=== PATIENT | female | born 1950 | race Caucasian/White ===

== ENCOUNTER 2023-12-23 11:22 | Observation (INO) | payer MEDICARE, SELFPAY ==
[2023-12-23 11:26] VITALS: BP 125/60; PULSE 60; RESP 14; TEMP 37; O2SAT 100; BMI 24.0
[2023-12-23 11:37] VITALS: BMI 24.0
--- NOTE | 2023-12-23 11:59 | EKG_ITS ---
[place] [id number] [address] [place] [id number] Test Date: 2023-12-23 Pat Name: [facility] Department: [facility] Room: Gender: Female Visual C Developer: DAMI : 1950 Requested By: Order Number: [id number] Reading MD: Jitendra Everett MD Measurements Intervals [place] Rate: 52 P: 56 FL: 180 QRS: -20 QRSD: 80 T: 54 QT: 472 QTc: 438 Interpretive Statements Sinus bradycardia Electronically Signed On 12-24-2023 7:37:28 PDT by Jitendra Everett MD
[2023-12-23 12:04] LABS: Add Manual Diff / Slide Review NO; Basophils Absolute Auto 100 /uL (0-100); Basophils Percent Auto 0.8 % (0-2); Eosinophils Absolute Auto 800 /uL (0-450); Eosinophils Percent Auto 8.6 % (2-4); Hematocrit 37.4 % (36-46); Hemoglobin 12.9 g/dL (12.0-16.0); Lymphocytes Absolute Auto 900 /uL (1100-4500); Lymphocytes Percent Auto 9.3 % (25-40); Mean Corpuscular HGB Conc 34.5 % (30-36); Mean Corpuscular Hemoglobin 30.8 PG (26-34); Mean Corpuscular Volume 89.3 fL (80-100); Monocytes Absolute Auto 600 /uL (0-900); Monocytes Percent Auto 6.9 % (3-14); Neutrophils Absolute Auto 7000 /uL (1500-7000); Neutrophils Percent Auto 74.4 % (50-75); Platelet Count 253 X10^3/uL (150-400); Red Blood Cell Count 4.18 X10^6/uL (4.0-5.2); Red Cell Distribution Width 13.3 % (11.6-14.8); White Blood Cell Count 9.4 X10^3/uL (4.5-11.0)
[2023-12-23 12:12] LABS: Alanine Aminotransferase 27 IU/L (<35); Albumin 4.2 g/dL (3.5-5.0); Albumin Globulin Ratio 1.4 (1.0-2.8); Alkaline Phosphatase 54 U/L (38-126); Aspartate Aminotransferase 28 IU/L (14-36); BUN Creatinine Ratio 13.1 (6-22); Bilirubin Total 0.5 mg/dL (0.2-1.3); Blood Urea Nitrogen 11 mg/dL (7-17); Calcium 9.5 mg/dL (8.4-10.2); Carbon Dioxide 25 mmol/L (22-32); Chloride 100 mmol/L (98-107); Estimated Glomerular Filt Rate > 60 mL/min (>60); Globulin 2.9 g/dL (1.7-4.1); Glucose 98 mg/dL (80-110); HEMOLYSIS < 15 (0-50); Lipase 58 U/L (23-300); Potassium 4.3 mmol/L (3.4-5.1); Sodium 132 mmol/L (137-145); Total Protein 7.1 g/dL (6.3-8.2)
--- NOTE | 2023-12-23 12:31 | ED_ITS ---
HPI - Abdominal Pain General Chief Complaint: Abdominal Pain Stated Complaint: abd pain, vomiting Time Seen by Provider: 12/23/23 12:23 Source: patient Mode of arrival: Ambulatory History of Present Illness HPI narrative: Patient here with . Visiting from [place]. Patient started having abdominal pain yesterday. Has history of cecal volvulus with surgery back in 2022 in [place]. Patient had nausea and vomiting through the course of the night. She did try taking szms-orq-ypxrsuw antacids without relief. She was supposed to be on Nexium which she discontinued back in July of this year. Denies any chest pain or back pain. No urinary complaints. No black or bloody stools. Feels bloated. Pain is better. Review of Systems Review of Systems Narrative: GENERAL: negative chills, fatigue, malaise, fever, sweats. HEENT: negative sinus pain, ear pain, sore throat RESPIRATORY: negative dyspnea, cough CARDIOVASCULAR: negative chest pain, palpitations GASTROINTESTINAL: Positive nausea, vomiting, abdominal pain : negative dysuria, frequency, hematuria MUSCULOSKELETAL: negative muscle or bony pain SKIN: negative rash, skin lesions NEUROLOGIC: negative weakness, numbness ROS Unobtainable: All systems reviewed & are unremarkable except as noted in HPI and below Patient History Social History Smoking Status: Never smoker Smoking Status: Never smoker alcohol intake frequency: other Substance Use Type: does not use Exam Narrative Exam Narrative: GENERAL: in no distress, not toxic not dyspneic HEAD: Normocephalic. EYES: Pupils equal round ENT: Mucous membranes moist. NECK: Trachea midline. CARDIOVASCULAR: Regular rate and rhythm RESPIRATORY: Clear to auscultation. Breath sounds equal bilaterally. No wheezes, rales, or rhonchi. GASTROINTESTINAL: Abdomen soft, non-tender, no distention, bowel sounds are present. No pain out of portion exam. No peritoneal signs. No guarding or rebound. No CVA tenderness EXTREMITIES: No gross deformities. BACK: No flank tenderness. NEURO: AOx4. Clear speech SKIN: Warm and dry PSYCH: Not anxious, is cooperative Initial Vital Signs Initial Vital Signs: Vital Signs Temperature 98.6 F 12/23/23 11:26 Pulse Rate 60 12/23/23 11:26 Respiratory Rate 14 12/23/23 11:26 Blood Pressure 125/60 12/23/23 11:26 Pulse Oximetry 100 12/23/23 11:26 Oxygen Delivery Method Room Air 12/23/23 11:26 Course Orders Ordered: ED Orders 12/23/23 11:40 EKG-12 Lead Stat 12/23/23 11:48 Complete Blood Count AUTO DIFF Stat Comprehensive Metabolic Panel Stat Lipase Stat Troponin & CK Cardiac Panel Stat 12/23/23 12:31 CT abdomen pelvis w con Stat Sodium Chloride (Normal Saline 0.9%) 1,000 mls @ 125 mls/hr IV CONT JAIME Last Admin: 12/23/23 15:07 Dose: 125 mls/hr Documented By: CARLOS Morphine Sulfate (Morphine 2 Mg/Ml Inj) 2 mg IV Q4HR PRN PRN Reason: Pain, Severe (7-10) Ondansetron HCl (Ondansetron 4 Mg/2 Ml Inj) 4 mg IV NOW PRN PRN Reason: Nausea And Vomiting Ondansetron HCl (Ondansetron 4 Mg Odt) 4 mg PO NOW PRN PRN Reason: Nausea And Vomiting Ondansetron HCl (Ondansetron 4 Mg/2 Ml Inj) 4 mg IV Q4HR PRN PRN Reason: Nausea And Vomiting Discontinued Medications Al Hydrox/Mg Hydrox/Simethicone 20 ml/ Lidocaine HCl 15 ml 0 ml PO NOW ONE Stop: 12/23/23 12:30 Last Admin: 12/23/23 12:53 Dose: 30 ml Documented By: RORY Sodium Chloride (Normal Saline 0.9%) 1,000 mls @ 1,000 mls/hr IV BOLUS ONE Stop: 12/23/23 13:28 Last Infusion: 12/23/23 13:55 Dose: Infused Documented By: Admin: 12/23/23 12:52 Dose: 1,000 mls/hr Documented By: RORY Pantoprazole Sodium (Pantoprazole 40 Mg Vial) 40 mg IV NOW ONE Stop: 12/23/23 12:30 Last Admin: 12/23/23 12:53 Dose: 40 mg Documented By: RORY Vital Signs Vital signs: Vital Signs - 8 hr 12/23/23 11:26 12/23/23 13:56 Temperature 98.6 F Pulse Rate 60 62 Respiratory Rate 14 20 Blood Pressure 125/60 136/63 Pulse Oximetry 100 98 Oxygen Delivery Method Room Air Room Air MDM - Abdominal Pain Lab Data 12/23/23 11:48 12/23/23 11:48 Labs: Lab Results 12/23/23 Range/Units 11:48 WBC 9.4 (4.5-11.0) X10^3/uL RBC 4.18 (4.0-5.2) X10^6/uL Hgb 12.9 (12.0-16.0) g/dL Hct 37.4 (36-46) % MCV 89.3 (80-100) fL MCH 30.8 (26-34) PG MCHC 34.5 (30-36) % RDW 13.3 (11.6-14.8) % Plt Count 253 (150-400) X10^3/uL Neut % (Auto) 74.4 (50-75) % Lymph % (Auto) 9.3 L (25-40) % [place] % (Auto) 6.9 (3-14) % Eos % (Auto) 8.6 H (2-4) % Baso % (Auto) 0.8 (0-2) % Neut # (Auto) 7000 (9210-1741) /uL Lymph # (Auto) 900 L (4632-5872) /uL [place] # (Auto) 600 (0-900) /uL Eos # (Auto) 800 H (0-450) /uL Baso # (Auto) 100 (0-100) /uL Sodium 132 L (137-145) mmol/L Potassium 4.3 (3.4-5.1) mmol/L Chloride 100 (98-107) mmol/L Carbon Dioxide 25 (22-32) mmol/L BUN 11 (7-17) mg/dL Creatinine 0.84 (0.52-1.04) mg/dL Estimated GFR > 60 (>60) mL/min BUN/Creatinine Ratio 13.1 (6-22) Glucose 98 (80-110) mg/dL Calcium 9.5 (8.4-10.2) mg/dL Total Bilirubin 0.5 (0.2-1.3) mg/dL AST 28 (14-36) IU/L ALT 27 (<35) IU/L Alkaline Phosphatase 54 (38-126) U/L Total Creatine Kinase 207 H (30-135) U/L Troponin I < 0.012 (0.01-0.034) ng/mL Total Protein 7.1 (6.3-8.2) g/dL Albumin 4.2 (3.5-5.0) g/dL Globulin 2.9 (1.7-4.1) g/dL Albumin/Globulin Ratio 1.4 (1.0-2.8) Lipase 58 (23-300) U/L Point of care testing: Urine Dip Bedside Urine Glucose Negative Bedside Urine Bilirubin - Negative Bedside Urine Ketone - Negative Urine Specific [place] 1.010 Bedside Urine Occult Blood - Negative Bedside Urine pH 8.5 Bedside Urine Protein - Negative Bedside Urine Urobilinogen - Negative Bedside Urine Nitrite - Negative Bedside Urine Leukocytes - Negative Esterase Imaging Data CT scan - abdomen/pelvis: Radiologist's Impression: [address] [address] [address] Scan Report Signed Patient: Richa Sloan MR#: [id number] : 1950 Acct:[id number] Age/Sex: 73 / F Date of Service: 12/23/23 Loc: ED Accession Number: [id number] Procedure: CT abdomen pelvis w con Ordering Provider: Pio Recio MD PROCEDURE: CT ABDOMEN PELVIS W CON INDICATIONS: epigastric pain TECHNIQUE: After the administration of intravenous contrast, axial sections acquired from the lung bases to the pubic symphysis. Coronal and sagittal reformats were performed. For radiation dose reduction, the following was used: automated exposure control, adjustment of mA and/or kV according to patient size. COMPARISON: None. FINDINGS: Image quality: Diagnostic. Lower Chest: In the extreme right lung base there are peripheral areas of cystic bronchiectasis with associated fluid. No airspace consolidation. ABDOMEN: Liver: No solid mass. Gallbladder: No radiopaque gallstones or wall thickening. Biliary ducts: No biliary dilation. Pancreas: No ductal dilation. Spleen: Size is within normal limits. Adrenal Glands: No adrenal nodules. Kidneys and Ureters: No hydronephrosis. No solid mass. No complex renal cystic lesion which requires follow up. Stomach and Bowel: Previous partial bowel resection. There is a diffusely thickened and narrowed distal jejunal loop with a degree of small bowel obstruction proximal to this loop. Reference coronal image 23 of series 3 and axial image 57 of series 2. There is also a focal area of loop thickening and narrowing involving the proximal ileum. Reference coronal image 20 of series 3 and axial image 62 of series 2. Peritoneum: No abnormal intraperitoneal fluid. No free air. Ventral Wall: No significant ventral hernia. Abdominal Nodes: No retroperitoneal or mesenteric adenopathy by size criteria. Vessels: Aorta and inferior vena cava are normal in size. PELVIS: Pelvic Organs: Unremarkable. Bladder: No bladder wall thickening, accounting for underdistention. Pelvic Nodes: No enlarged lymph nodes. Miscellaneous: No inguinal hernias are seen. Bones: No aggressive osseous abnormality. IMPRESSION: 1. Remote partial bowel resection. 2. There are 2 focal small bowel loops which have thickening and luminal narrowing. There is an associated small-bowel obstruction. 3. Incidental note made of areas of peripheral cystic bronchiectasis in the extreme right lung base. Comment: Consider Crohn's small bowel disease. Also consider sequelae of previous bowel ischemia. Dictated by: Femi Miranda M.D. on 12/23/2023 at 14:14 Approved by: Femi Miranda M.D. on 12/23/2023 at 14:19 [facility] Narrative Medical decision making narrative: Patient here with . Visiting from [place]. Patient started having abdominal pain yesterday. Has history of cecal volvulus with surgery back in 2022 in [place]. Patient had nausea and vomiting through the course of the night. She did try taking aqln-joo-ivrgayv antacids without relief. She was supposed to be on Nexium which she discontinued back in July of this year. Denies any chest pain or back pain. No urinary complaints. No black or bloody stools. Feels bloated. Pain is better Exam is reassuring. Abdomen is soft flat nontender no peritoneal signs no rebound no guarding After history and exam, CBC CMP lipase CT abdomen pelvis GI cocktail Protonix Zofran normal saline [facility] Medical records reviewed: No recent visit for this complaint Differential considered: Includes but not limited to bowel obstruction volvulus gastritis acid reflux STEMI non-STEMI pancreatitis Lab Test results independently reviewed as above. Pertinent findings: WBC 9.4 hemoglobin 12.9 sodium 132 potassium 4.3 AST 28 ALT 27 lipase 58 Independently reviewed EKG sinus bradycardia rate [address] elevation or depression Imaging studies independently reviewed: CT abdomen pelvis shows small bowel obstruction Consultations: 2:[address] Lopez general surgery, who will admit patient to his service, no NG tube at this time Treatments: GI cocktail Protonix Zofran normal saline Re-evaluations: 2:41 p.m.. Pain is controlled. No vomiting. Reviewed results with patient and . Do understand that they need to be admitted for bowel obstruction. Discussion: Appropriate for admission for bowel obstruction, general surgeon contacted. Patient and family agree for treatment plan. Diagnosis: Small-bowel obstruction Discharge Plan Departure Patient Disposition: Admitted as Observation Clinical Impression: Small bowel obstruction Admit Date/Time: 12/23/23 14:39 Admit Provider: Isaiah Lopez
[2023-12-23 12:46] LABS: Creatine Kinase 207 U/L (30-135)
[2023-12-23] MEDS: SODIUM CHLORIDE 0.9% 1,000 ML 1000 ML IV (12:52)
[2023-12-23] MEDS: PANTOPRAZOLE 40 MG VIAL IV (12:53)
[2023-12-23] MEDS: MAG HYDROX/ALUMINUM/SIMETH SUS 20 ML, LIDOCAINE VISCOUS 2% 15 ML PO (12:53)
[2023-12-23 12:58] LABS: Troponin I < 0.012 ng/mL (0.01-0.034)
[2023-12-23 13:56] VITALS: BP 136/63; PULSE 62; RESP 20; O2SAT 98
[2023-12-23] MEDS: SODIUM CHLORIDE 0.9% 1,000 ML 125 ML IV (15:07)
--- NOTE | 2023-12-23 15:20 | DI.RAD.S_ITS ---
PROCEDURE: XR GASTROGRAFIN CHALLENGE COMPARISON: [facility], CT, CT ABDOMEN PELVIS W CON, 12/23/2023, 12:34. INDICATIONS: SBO FINDINGS: Contrast is seen throughout the small bowel and colon. No significantly dilated loops of bowel. IMPRESSION: Contrast is seen throughout the small bowel colon. No significantly dilated loops of bowel. Correlate with prior CT scan from the same day. Dictated by: Donald Campos M.D. on 12/23/2023 at 19:38 Approved by: Donald Campos M.D. on 12/23/2023 at 19:39
[2023-12-23 15:38] VITALS: BP 140/68; PULSE 61; RESP 20; O2SAT 98
[2023-12-23 16:00] VITALS: BP 135/85; PULSE 59; RESP 16; TEMP 36.2; O2SAT 98
[2023-12-23 16:02] VITALS: BMI 24.9
--- NOTE | 2023-12-23 16:24 | PC.NURSE ---
not taking many medications take more supplements, some meds she has not taken for long time
--- NOTE | 2023-12-23 19:37 | P.HP_ITS ---
History of Present Illness History of Present Illness Date Patient Seen: 12/23/23 Time Patient Seen: 19:38 Chief complaint: abd pain, vomiting Narrative: 73-year-old woman history of a right hemicolectomy for cecal volvulus admitted to the hospital with a small-bowel obstruction. She presented with abdominal pain and emesis. CT abdomen pelvis demonstrates a small-bowel obstruction partial perhaps 2 areas of narrowing within the distal small bowel, the anastomosis on my review appears to be wide open. Since admission she has improved. She received a Gastrografin challenge he has had multiple bowel movements nausea has resolved. [facility] Surgical History (Updated 12/23/23 @ 19:39 by Isaiah Lopez MD) H/O colectomy Social History household members: spouse Smoking Status: Never smoker alcohol intake: never Meds Home Medications and Allergies Home Medications Medication Instructions Recorded Confirmed Type albuterol sulfate 90 mcg/actuation 1 - 2 puff inhalation Q4H PRN 12/23/23 12/23/23 History aerosol inhaler dyspnea amikacin liposomal 590 mg/8.4 mL 590 mg inhalation 4XW 12/23/23 12/23/23 History susp for inhalation, nebulizer acces. (Arikayce) bedaquiline 100 mg tablet 200 mg PO 3XW 12/23/23 12/23/23 History calcium citrate 250 mg PO TID 12/23/23 12/23/23 History clofazimine 50 mg capsule 100 mg PO DAILY 12/23/23 12/23/23 History Exam Vital Signs (past 8 hours): - 12/23/23 13:56 12/23/23 15:38 12/23/23 16:00 Temperature 97.1 F L Pulse Rate 62 61 59 L Respiratory Rate 20 20 16 Blood Pressure 136/63 140/68 135/85 Pulse Oximetry 98 98 98 Oxygen Delivery Method Room Air Room Air Oxygen Delivery Method Room Air Narrative Exam Narrative: GENERAL: A well nourished, well developed adult woman, resting comfortably, in no acute distress. HEENT: Normocephalic, atraumatic. No scleral icterus CHEST: Rising symmetrically. No audible wheezes CARDIOVASCULAR: Warm and well perfused. Regular rate ABDOMEN: Soft, minimally distended nontender well-healed midline laparotomy scar EXTREMITIES: Normal tone and without edema. NEUROLOGIC: Moving all extremities spontaneously. No gross motor deficits. Objective Labs 12/23/23 11:48 12/23/23 11:48 Labs: Laboratory Results - last 24 hr 12/23/23 11:48 WBC 9.4 RBC 4.18 Hgb 12.9 Hct 37.4 MCV 89.3 MCH 30.8 MCHC 34.5 RDW 13.3 Plt Count 253 Neut % (Auto) 74.4 Lymph % (Auto) 9.3 L [place] % (Auto) 6.9 Eos % (Auto) 8.6 H Baso % (Auto) 0.8 Neut # (Auto) 7000 Lymph # (Auto) 900 L [place] # (Auto) 600 Eos # (Auto) 800 H Baso # (Auto) 100 Sodium 132 L Potassium 4.3 Chloride 100 Carbon Dioxide 25 BUN 11 Creatinine 0.84 Estimated GFR > 60 BUN/Creatinine Ratio 13.1 Glucose 98 Calcium 9.5 Total Bilirubin 0.5 AST 28 ALT 27 Alkaline Phosphatase 54 Total Creatine Kinase 207 H Troponin I < 0.012 Total Protein 7.1 Albumin 4.2 Globulin 2.9 Albumin/Globulin Ratio 1.4 Lipase 58 Assessment & Plan Assessment and plan (1) Small bowel obstruction: Status: Acute Assessment & Plan narrative: 73-year-old woman prior abdominal surgery with small-bowel obstruction now resolving. Gastrografin challenge in process but on my review of the last x-ray there is presence of contrast within the colon. We will begin clear liquid diet advance as tolerated. Anticipate discharge home tomorrow. Time-Based Coding :: [TOTAL MINUTES] spent with patient and on the chart (including review of chart, obtaining history, exam, reviewing outside data, placing orders, documenting exam and treatment plan, and counseling patient) on [DATE]. Quality VTE Deep Vein Thrombosis/Pulmonary Embolism Present on Admission: No
[2023-12-23 20:00] VITALS: BP 124/75; PULSE 64; RESP 20; TEMP 36.7; O2SAT 100
[2023-12-24 04:00] VITALS: BP 117/64; PULSE 53; RESP 18; TEMP 37.1; O2SAT 99
[2023-12-24 08:00] VITALS: BP 105/60; PULSE 55; RESP 16; TEMP 36.2; O2SAT 98
--- NOTE | 2023-12-24 09:05 | PM.PN.1 ---
Subjective Subjective Date Patient Seen: 12/24/23 Time Patient Seen: 09:06 Interval history: Bowel movements tolerating clears resolution of abdominal pain Exam Vital Signs (past 8 hours): - 12/24/23 04:00 12/24/23 08:00 Temperature 98.7 F 97.2 F L Pulse Rate 53 L 55 L Respiratory Rate 18 16 Blood Pressure 117/64 105/60 Pulse Oximetry 99 98 Oxygen Delivery Method Room Air Oxygen Flow Rate 0 Narrative Exam Narrative: General adult woman alert oriented no acute distress Abdomen soft nontender nondistended Objective Labs 12/23/23 11:48 12/23/23 11:48 Labs: Laboratory Results - last 24 hr 12/23/23 11:48 WBC 9.4 RBC 4.18 Hgb 12.9 Hct 37.4 MCV 89.3 MCH 30.8 MCHC 34.5 RDW 13.3 Plt Count 253 Neut % (Auto) 74.4 Lymph % (Auto) 9.3 L [place] % (Auto) 6.9 Eos % (Auto) 8.6 H Baso % (Auto) 0.8 Neut # (Auto) 7000 Lymph # (Auto) 900 L [place] # (Auto) 600 Eos # (Auto) 800 H Baso # (Auto) 100 Sodium 132 L Potassium 4.3 Chloride 100 Carbon Dioxide 25 BUN 11 Creatinine 0.84 Estimated GFR > 60 BUN/Creatinine Ratio 13.1 Glucose 98 Calcium 9.5 Total Bilirubin 0.5 AST 28 ALT 27 Alkaline Phosphatase 54 Total Creatine Kinase 207 H Troponin I < 0.012 Total Protein 7.1 Albumin 4.2 Globulin 2.9 Albumin/Globulin Ratio 1.4 Lipase 58 [facility] Medical History (Updated 12/24/23 @ 02:16 by Reyna Jones RN) Mycobacterial disease, pulmonary Surgical History (Updated 12/23/23 @ 19:39 by Isaiah Lopez MD) H/O colectomy Social History household members: spouse Smoking Status: Never smoker alcohol intake: never Assessment & Plan Assessment and plan (1) Small bowel obstruction: Status: Acute Plan Resolving small-bowel obstruction. -advance to regular diet if tolerates DC home Time-Based Coding :: [TOTAL MINUTES] spent with patient and on the chart (including review of chart, obtaining history, exam, reviewing outside data, placing orders, documenting exam and treatment plan, and counseling patient) on [DATE]. Quality VTE Deep Vein Thrombosis/Pulmonary Embolism Present on Admission: No
--- NOTE | 2023-12-24 10:45 | CM.DANOTE ---
Addendum entered by SHAHEEN Escobar 12/24/23 14:38: ADD: Per Surgeon, pt tolerating diet and medically stable to discharge home today with outpt f/u and no identified barriers to discharge. Pt preference was home today and will call her spouse for transport. No further SW needs at this time. BF Original Note: Patient is a 73 yo female who was admitted on 12/23/23 OBS Status for SBO. Pt has MCR and [employer] for insurance and her PCP is in [place]. EMR was reviewed. Per Surgeon, pt with hx of hemicolectomy and admitted for SBO, had Gastrogafein study, and SBO seems to be resolving and pt had a couple small bms overnight, tolerated liquids and switched to general diet to confirm pt can tolerate and then potential discharge today if pt stable. SW met bedside with pt and explained role and she confirms that she lives at home in [place] with her spouse/POA Jitendra and both are active and independent at baseline and pt does not use DME for ambulation and still drives. Pt states they are camping in the RV at [facility] with their friends for the week and already stayed in [facility] the week prior. Pt is currently eating a general diet breakfast and is hopeful she can tolerate and then discharge later today and states spouse will provide transport back to their RV (their friends are going to [place] today but pt will just stay at their RV at discharge and just take it easy). Pt does not anticipate any needs at d/c and preference is discharge today if she tolerates diet. Per RN, no concerns noted and likely discharge today. Plan: SW to follow to confirm pt tolerating general diet for plan of discharge [facility] via spouse POV and any further identified discharge planning needs. SHAHEEN Escobar Discharge Planning/Care Management CM Discharge Assessment Start: 12/24/23 10:44 Freq: Status: Active Protocol: Document 12/24/23 10:44 BF (Rec: 12/24/23 10:45 BF [id number]) Discharge Planning Assessment Assigned Shear Scrapman SHAHEEN Helm DPOA/Assigned Designee Name spouse Jitendra Contact Information [phone] Advance Directives? No Advance Directives on File No History Provided By Patient,Medical Record Has Patient been admitted in last 30 No days? Prior Living Arrangements House Household Members spouse Type of transporation used prior to Drives own vehicle admit Independent with ADL's Yes Is patient alert and oriented? Yes Caregiver for Another No Barriers to Discharge No Discharge Plan Home Transportation Arrangement spouse Jitendra will provide transport at d/c. Referrals Initiated None needed Whiteboard Updated in Patient Room with Yes name and ext. # of Shear Scrapman Review Status In Process Please Provide Date Initial DC 12/24/23 Assessment Was Performed Next Review Type Continued Stay Review
--- NOTE | 2023-12-24 14:49 | PC.NURSE ---
Patient is A&OX4, VSS, afebrile on RA. She is independent in the room and she tolerates a clear liquid diet well through the night. Patient is evaluated by MD Lopez and advanced to a general diet. She tolerates both breakfast and lunch well. MD notified and he clears her for discharge home without new medications. She verbalizes understanding and acknowledges that she will return to the ED with any further n/v or increased abdominal pain. She is escorted via w/ch by LOGGER to private vehicle with her for discharge home this afternoon at 1448 pm.
== END 2023-12-24 14:49 | disposition home or self-care (01) ==
LOC: ED 13:15 → AC 14:40
PROVIDERS: Admitting Provider Surgery; Emergency Provider Emergency Medicine; Referring Provider Emergency Medicine; Visit Provider Surgery
DX: K56.600 Partial intestinal obstruction, unspecified as to cause (principal)
CPT/HCPCS: 36415; 74018; 74177; 80053; 81003; 82550; 83690; 84484; 85025; 93005; 93010; 96361; 96374; 99284; G0378; J2470; Q9967